=== PATIENT | female | born 1945 | race Caucasian/White ===

== ENCOUNTER 2017-01-17 14:41 | Emergency (ER) | payer MEDICARE ==
--- NOTE | 2017-01-17 15:09 | UC ---
Eye Complaint HPI - HPI Summary HPI Summary: patient has had some sinus pressure and right eye drainage that was yellow and crusty this morning.Post nasal drip and cough present - History of Current Complaint Stated Complaint: RT EYE COMPLAINT Time Seen by Provider: 01/17/17 14:59 Hx Obtained From: Patient Hx Last Menstrual Period: N/A ?: No Onset/Duration: Sudden Onset, Lasting Days Timing: Constant Severity Initially: Moderate Severity Currently: Moderate Character: Foreign Body Sensation Associated Signs And Symptoms: Positive: Drainage (Purulent) - Risk Factors Penetrating Injury Risk Factor: Negative Globe Rupture Risk Factors: Negative Acute Glaucoma Risk Factors: Negative - Allergies/Home Medications Allergies/Adverse Reactions: Allergies Allergy/AdvReac Type Severity Reaction Status Date / Time Clarithromycin [From Biaxin] AdvReac Unknown Unknown Verified 01/17/17 14:51 Reaction Details Home Medications: Home Medications Fluticasone-Salmeterol 100-50* [Advair Diskus 100-50*] 1 puff INH BID 01/17/17 [ History Confirmed 01/17/17] Latanoprost 0.005%* [Xalatan 0.005%*] 1 drop BOTH EYES QPM 01/17/17 [History Confirmed 01/17/17] Pioglitazone TAB* [Actos TAB*] 15 mg PO DAILY 01/17/17 [History Confirmed ] Ramipril CAP* [Altace CAP*] 1 tab PO BID 01/17/17 [History Confirmed 01/17/17] PMH/Surg Hx/FS Hx/Imm Hx Previously Healthy: Yes Endocrine History Of: Reports: Diabetes, Thyroid Disease Cardiovascular History Of: Reports: Cardiac Disorders - aortic insufficiency, aortic stenosis, Hypertension Respiratory History Of: Reports: Asthma Denies: COPD - Surgical History Surgical History: Yes Surgery Procedure, Year, and Place: CARPAL TUNNEL. CHOLECYSTECTOMY. APPY, open heart - aortic valve replacement 02/24/2014 cardiac [facility] - Family History Known Family History: Positive: Hypertension, Renal Disease - Social History Alcohol Use: None Substance Use Type: None Smoking Status (MU): Former Smoker When Did the Patient Quit Smoking/Using Tobacco: 30-40 years ago Review of Systems Constitutional: Negative Skin: Negative Eyes: Drainage, Eye Redness ENT: Sore Throat Respiratory: Negative Cardiovascular: Negative Gastrointestinal: Negative Genitourinary: Negative Motor: Negative Neurovascular: Negative Musculoskeletal: Negative Neurological: Headache Psychological: Negative All Other Systems Reviewed And Are Negative: Yes Physical Exam Triage Information Reviewed: Yes Appearance: No Pain Distress, Well-Nourished, Pain Distress Vital Signs: Initial Vital Signs Temp 97.8 F 01/17/17 15:02 Pulse 75 01/17/17 15:02 Resp 20 01/17/17 15:02 BP 125/56 01/17/17 15:02 Pulse Ox 95 01/17/17 15:02 Vital Signs Reviewed: Yes Eye Exam: Normal Eyes: Positive: Conjunctiva Inflamed, Discharge ENT: Positive: Pharyngeal erythema - with postieror pharynx exudate, Nasal congestion, Nasal drainage, TM bulging, Other: - bilateral maxillary sinus pressure, turbid in both nares red and inflammed, Dental Exam: Normal Neck exam: Normal Neck: Positive: Supple, Nontender, No Lymphadenopathy Respiratory Exam: Normal Respiratory: Positive: Chest non-tender, Lungs clear, Normal breath sounds Cardiovascular Exam: Normal Cardiovascular: Positive: RRR, No Murmur, Pulses Normal Abdominal Exam: Normal Abdomen Description: Positive: Nontender, No Organomegaly, Soft Bowel Sounds: Positive: Present Musculoskeletal Exam: Normal Musculoskeletal: Positive: Strength Intact, ROM Intact, No Edema Neurological Exam: Normal Neurological: Positive: Alert, Muscle Tone Normal Psychological Exam: Normal Skin Exam: Normal Eye Complaint Course/Dx - Course Course Of Treatment: hx obtained, exam performed, meds reviewed, treated for sinus congestion and conjunctivitis - Differential Dx/Diagnosis Differential Diagnosis/HQI/PQRI: Conjunctivitis, Periorbital Cellulitis Provider Diagnoses: rhinosinusitis. conjunctivitis Discharge - Discharge Plan Condition: Stable Disposition: HOME Patient Education Materials: Conjunctivitis (ED) Additional Instructions: take the medications as directed, Increase your fluid intake and get plenty of rest. follow up with any worsening symtpoms.
[2017-01-17 15:21] VITALS: BP 125/56
== END 2017-01-17 15:35 | disposition home or self-care (01) ==
LOC: UCCORT 14:41
DX: J32.9 Chronic sinusitis, unspecified (principal); H10.31 Unspecified acute conjunctivitis, right eye; I35.1 Nonrheumatic aortic (valve) insufficiency; I35.0 Nonrheumatic aortic (valve) stenosis; I10 Essential (primary) hypertension; Z95.2 Presence of prosthetic heart valve; Z88.1 Allergy status to other antibiotic agents; Z87.891 Personal history of nicotine dependence
CPT/HCPCS: 99212; G0463

== ENCOUNTER 2017-05-10 17:07 | Emergency (ER) | payer MEDICARE ==
[2017-05-10 17:31] VITALS: BP 129/46
--- NOTE | 2017-05-10 17:49 | UC ---
Back Pain HPI - HPI Summary HPI Summary: Had L low back pain starting 2 weeks ago, seemed to be clearing up until 3 days ago when pain suddenly worsened while she was twisting to wipe after a BM. Denies urinary pain, frequency, or blood. No changes in swelling/weight. No hx of back surgery. 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 - History of Current Complaint Chief Complaint: UCBackPain Stated Complaint: BACK PAIN Time Seen by Provider: 05/10/17 17:10 Hx Obtained From: Patient Hx Last Menstrual Period: N/A ?: No Onset/Duration: Gradual Onset, Lasting Weeks Timing: Constant Severity Initially: Mild Severity Currently: Moderate Character: Dull, Aching, Stiffness Aggravating: Movement - twisting to the right is worse, twisting to the L is ok Alleviating: Rest Associated Signs And Symptoms: Negative: Weakness, Numbness, Tingling, Bladder Incontinence - Allergies/Home Medications Allergies/Adverse Reactions: Allergies Allergy/AdvReac Type Severity Reaction Status Date / Time Clarithromycin [From Biaxin] AdvReac Unknown Unknown Verified 05/10/17 17:12 Reaction Details Home Medications: Home Medications Potassium Chlor TAB* [Klor Con ER TAB 10 MEQ*] 1 tab TID 05/10/17 [History Confirmed 05/10/17] PMH/Surg Hx/FS Hx/Imm Hx Endocrine History: Diabetes, Thyroid Disease Cardiovascular History: Hypertension Other Cardiovascular History: aortic insuff., valve surgery? Respiratory History: Asthma - Surgical History Surgical History: Yes Surgery Procedure, Year, and Place: CARPAL TUNNEL. CHOLECYSTECTOMY. APPY, open heart - aortic valve replacement 02/24/2014 cardiac [facility] - Family History Known Family History: Positive: None, Hypertension, Renal Disease - Social History Occupation: Retired Lives: Alone Alcohol Use: None Substance Use Type: None Smoking Status (MU): Former Smoker When Did the Patient Quit Smoking/Using Tobacco: 30-40 years ago - Immunization History Most Recent Influenza Vaccination: 2016 Most Recent Tetanus Shot: UTD Most Recent Pneumonia Vaccination: UTD Review of Systems Constitutional: Negative Skin: Negative Eyes: Negative ENT: Negative Respiratory: Negative Cardiovascular: Negative Gastrointestinal: Negative Genitourinary: Negative Motor: Negative Neurovascular: Negative Musculoskeletal: Arthralgia, Myalgia Neurological: Negative Psychological: Negative All Other Systems Reviewed And Are Negative: Yes Physical Exam Triage Information Reviewed: Yes Appearance: No Pain Distress, Obese Vital Signs: Initial Vital Signs Temp 97.6 F 05/10/17 17:19 Pulse 74 05/10/17 17:19 Resp 18 05/10/17 17:19 BP 129/46 05/10/17 17:19 Pulse Ox 94 05/10/17 17:19 Vital Signs Reviewed: Yes Eye Exam: Other - PERRL Eyes: Positive: Conjunctiva Clear ENT: Positive: Normal ENT inspection, Hearing grossly normal, Pharynx normal, TMs normal. Negative: Tonsillar swelling, Tonsillar exudate Dental Exam: Other - dentures Neck exam: Normal Respiratory Exam: Other - breathless with movement Respiratory: Positive: Lungs clear, No respiratory distress, No accessory muscle use Cardiovascular: Positive: RRR, Murmur:Sys:Grade _?_/ - II Abdomen Description: Negative: CVA Tenderness (R), CVA Tenderness (L) Musculoskeletal: Positive: Strength Intact, ROM Intact, Edema @ - BLE, pt states it is at its normal stage Neurological: Positive: Alert Psychological Exam: Normal Back Pain Course/Dx - Differential Dx/Diagnosis Provider Diagnoses: L low back strain Discharge - Discharge Plan Condition: Stable Disposition: HOME Prescriptions: Hydrocodone-Acetaminophen [Hydrocodone/Acetaminophen 5-325 mg] 1 tab PO QID #12 tab MDD 4 Tizanidine HCl [Zanaflex] 2 mg PO TID #20 cap Patient Education Materials: Low Back Strain (ED) Referrals: Mason Madrid MD [Primary Care Provider] - Additional Instructions: As we discussed, we have not done any bloodwork or advanced imaging to rule out serious causes of your back pain. At this time, however, there are no "red flag " symptoms. Please keep your appointment with your kidney doctor on Saturday. If you develop fever, severe pain, worsening swelling, or urinary or bowel changes over the weekend, please go right to the emergency department.
--- NOTE | 2017-05-10 18:26 | RAD ---
HISTORY: Low back pain COMPARISONS: None VIEWS: 5 , Frontal, lateral, coned-down lateral sacral, and bilateral oblique views of the lumbar spine. FINDINGS: ALIGNMENT: The alignment is normal. VERTEBRAL BODIES: There is diffuse osteopenia. There is multilevel anterolateral marginal osteophyte formation. The vertebral bodies are preserved in height. JOINTS: There is extensive facet osteoarthritic change throughout the lumbar spine INTERVERTEBRAL DISCS: There is diffuse loss of intervertebral disc height. SOFT TISSUE: There is atherosclerosis of the abdominal aorta OTHER: There is osteoarthritis of the hips and SI joints IMPRESSION: 1. EXTENSIVE FACET OSTEOARTHRITIS WITH DEGENERATIVE DISC DISEASE. 2. ATHEROSCLEROSIS
== END 2017-05-10 18:37 | disposition home or self-care (01) ==
LOC: UCCORT 17:07
DX: S39.012A Strain of muscle, fascia and tendon of lower back, initial encounter (principal); M47.816 Spondylosis without myelopathy or radiculopathy, lumbar region; I70.0 Atherosclerosis of aorta; X50.9XXA Other and unspecified overexertion or strenuous movements or postures, initial encounter; Y92.9 Unspecified place or not applicable; E11.9 Type 2 diabetes mellitus without complications; I10 Essential (primary) hypertension; J45.909 Unspecified asthma, uncomplicated; Z95.2 Presence of prosthetic heart valve; Z87.891 Personal history of nicotine dependence; Z88.1 Allergy status to other antibiotic agents
CPT/HCPCS: 72110; 99212; G0463

== ENCOUNTER 2017-09-09 12:41 | Emergency (ER) | payer MEDICARE ==
[2017-09-09 13:24] VITALS: BP 139/58
--- NOTE | 2017-09-11 21:52 | UC ---
Complaint Female HPI - HPI Summary HPI Summary: 72 year old female presents with complains of urinary frequency and urgency. - History Of Current Complaint Chief Complaint: UCGU Stated Complaint: PERSONAL Time Seen by Provider: 09/09/17 13:00 Hx Obtained From: Patient Hx Last Menstrual Period: N/A Onset/Duration: Sudden Onset Severity Initially: Moderate Severity Currently: Moderate Pain Intensity: 10 Pain Scale Used: 0-10 Numeric - Allergies/Home Medications Allergies/Adverse Reactions: Allergies Allergy/AdvReac Type Severity Reaction Status Date / Time Clarithromycin [From Biaxin] AdvReac Unknown Unknown Verified 09/09/17 13:08 Reaction Details Home Medications: Home Medications Metolazone TAB* [Zaroxolyn TAB*] 5 mg PO 09/09/17 [History] glipiZIDE TAB* [Glucotrol TAB*] 10 mg PO DAILY 09/09/17 [History Confirmed 09/09] PMH/Surg Hx/FS Hx/Imm Hx Previously Healthy: Yes - Surgical History Surgical History: Yes Surgery Procedure, Year, and Place: CARPAL TUNNEL. CHOLECYSTECTOMY. APPY, open heart - aortic valve replacement 02/24/2014 cardiac [facility] [place] - Family History Known Family History: Positive: None, Hypertension, Renal Disease - Social History Alcohol Use: None Substance Use Type: None Smoking Status (MU): Former Smoker When Did the Patient Quit Smoking/Using Tobacco: 30-40 years ago - Immunization History Most Recent Influenza Vaccination: 2015 Most Recent Tetanus Shot: UTD Most Recent Pneumonia Vaccination: UTD Review of Systems Constitutional: Negative Skin: Negative Eyes: Negative ENT: Negative Respiratory: Negative Cardiovascular: Negative Gastrointestinal: Negative Genitourinary: Frequency, Urgency Motor: Negative Neurovascular: Negative Musculoskeletal: Negative Neurological: Negative Psychological: Negative All Other Systems Reviewed And Are Negative: Yes Physical Exam Triage Information Reviewed: Yes Vital Signs: Initial Vital Signs Temp 36.3 C 09/09/17 13:16 Pulse 71 09/09/17 13:16 Resp 18 09/09/17 13:16 BP 139/58 09/09/17 13:16 Pulse Ox 96 09/09/17 13:16 Vital Signs Reviewed: Yes Eye Exam: Normal ENT Exam: Normal Dental Exam: Normal Neck exam: Normal Neck: Positive: 1 Respiratory Exam: Normal Cardiovascular Exam: Normal Abdominal Exam: Normal Musculoskeletal Exam: Normal Neurological Exam: Normal Psychological Exam: Normal Skin Exam: Normal Complaint Female Dx - Differential Dx/Diagnosis Provider Diagnoses: uti Discharge - Discharge Plan Condition: Stable Disposition: HOME Prescriptions: Nitrofurantoin Monohyd Macro [Macrobid] 100 mg PO BID #14 cap Phenazopyridine 200 mg (NF) [Pyridium 200 MG tab *] 200 mg PO TID PRN #9 tab PRN Reason: Pain Patient Education Materials: Urinary Tract Infection in Women (ED) Referrals: Mason Madrid MD [Primary Care Provider] -
== END 2017-09-09 13:54 | disposition home or self-care (01) ==
LOC: UCCORT 12:41
DX: N39.0 Urinary tract infection, site not specified (principal); Z88.1 Allergy status to other antibiotic agents; Z90.49 Acquired absence of other specified parts of digestive tract; Z95.2 Presence of prosthetic heart valve; Z87.891 Personal history of nicotine dependence
CPT/HCPCS: 81003; 87086; 99212; G0463

== ENCOUNTER 2017-09-22 16:55 | Emergency (ER) | payer MEDICARE ==
--- NOTE | 2017-09-22 17:31 | UC ---
Complaint Female HPI - HPI Summary HPI Summary: c/o increased urgency, frequency but no burning. has DM but hasnt checked her sugar lately but has had increase in thirst over past few weeks. sometimes she says she feels like her ? bladder is hanging low she feels some tissue when she wipes". - History Of Current Complaint Chief Complaint: UCGU Stated Complaint: RE-CHECK URINARY Hx Obtained From: Patient Hx Last Menstrual Period: N/A Onset/Duration: Lasting Days Timing: Constant Severity Initially: Moderate Severity Currently: Moderate Aggravating Factor(s): Coughing, Urination Associated Signs And Symptoms: Positive: Negative - Risk Factors Ectopic Risk Factor: Negative Ovarian Torsion Risk Factor: Negative - Allergies/Home Medications Allergies/Adverse Reactions: Allergies Allergy/AdvReac Type Severity Reaction Status Date / Time Clarithromycin [From Biaxin] AdvReac Unknown Unknown Verified 09/09/17 13:08 Reaction Details PMH/Surg Hx/FS Hx/Imm Hx Previously Healthy: Yes Endocrine History: Diabetes - Surgical History Surgical History: Yes Surgery Procedure, Year, and Place: CARPAL TUNNEL. CHOLECYSTECTOMY. APPY, open heart - aortic valve replacement 02/24/2014 cardiac [facility] - Family History Known Family History: Positive: None, Hypertension, Renal Disease - Social History Alcohol Use: None Substance Use Type: None Smoking Status (MU): Former Smoker When Did the Patient Quit Smoking/Using Tobacco: 30-40 years ago - Immunization History Most Recent Influenza Vaccination: 2015 Most Recent Tetanus Shot: UTD Most Recent Pneumonia Vaccination: UTD Review of Systems Constitutional: Negative Skin: Negative Eyes: Negative ENT: Negative Respiratory: Negative Cardiovascular: Negative Gastrointestinal: Negative Genitourinary: Frequency, Urgency Neurological: Negative Psychological: Negative Is Patient Immunocompromised?: No All Other Systems Reviewed And Are Negative: Yes Physical Exam Triage Information Reviewed: Yes Appearance: No Pain Distress Vital Signs: Initial Vital Signs Temp 98.1 F 09/22/17 17:05 Pulse 77 09/22/17 17:05 Resp 20 09/22/17 17:05 BP 162/58 09/22/17 17:05 Pulse Ox 95 09/22/17 17:05 Vital Signs Reviewed: Yes Respiratory Exam: Normal Cardiovascular Exam: Normal Abdominal Exam: Normal Psychological Exam: Normal Skin Exam: Normal Complaint Female Dx - Course Course Of Treatment: urine - negative for UTI but + ketones. 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 check BS daily to see what sugar is running - if high talk with pcp for better control. f/u pcp in 1 week if symtpoms not resolving - Differential Dx/Diagnosis Provider Diagnoses: DM uncontrolled. urinary frequency not UTI related Discharge - Discharge Plan Condition: Stable Disposition: HOME Patient Education Materials: Blood and Urine Ketones (ED) Referrals: Mason Madrid MD [Primary Care Provider] - 1 Week Nicci Castillo MD [Medical Doctor] -
[2017-09-22 17:36] VITALS: BP 162/58
== END 2017-09-22 17:50 | disposition home or self-care (01) ==
LOC: UCCORT 16:55
DX: R35.0 Frequency of micturition (principal); E11.9 Type 2 diabetes mellitus without complications; Z90.49 Acquired absence of other specified parts of digestive tract; Z95.2 Presence of prosthetic heart valve; Z88.1 Allergy status to other antibiotic agents; Z87.891 Personal history of nicotine dependence
CPT/HCPCS: 81003; 87086; 99212; G0463

== ENCOUNTER 2018-09-21 16:43 | Emergency (ER) | payer MEDICARE ==
[2018-09-21 17:06] VITALS: BP 153/48
[2018-09-21] MEDS ORDERED: Fluconazole 150 MG TAB PO ONE (17:13)
--- NOTE | 2018-09-21 17:18 | UC ---
Complaint Female HPI - HPI Summary HPI Summary: Patient is a diabetic, noticed she has had increased itching and irritation of the vaginal area. has had yeast infection in the past. treated with diflucan for 3 daoses by her RETAIL SUPPORT SPECIALIST. - History Of Current Complaint Chief Complaint: UCGU Stated Complaint: PERSONAL Time Seen by Provider: 09/21/18 17:03 Hx Obtained From: Patient Hx Last Menstrual Period: N/A ?: No Onset/Duration: Sudden Onset, Lasting Days Timing: Constant Severity Initially: Mild Severity Currently: Mild Pain Intensity: 3 Character: Burning Aggravating Factor(s): Urination Associated Signs And Symptoms: Positive: Vaginal Discharge - Allergies/Home Medications Allergies/Adverse Reactions: Allergies Allergy/AdvReac Type Severity Reaction Status Date / Time clarithromycin Allergy Unknown Unknown Verified 09/21/18 16:57 Reaction Details Home Medications: Home Medications Amiodarone TAB* [Cordarone TAB*] 200 mg PO DAILY 09/21/18 [History Confirmed 12/08] Ascorbic Acid TAB* [Vitamin C TAB*] 500 mg PO DAILY 09/21/18 [History Confirmed 09/21/18] Aspirin EC TAB* [Ecotrin EC Low Dose 81 MG*] 81 mg PO DAILY 09/21/18 [History Confirmed 09/21/18] Ergocalciferol (Vitamin D2) [Vitamin D2] 50,000 unit PO DAILY 09/21/18 [History Confirmed 09/21/18] Furosemide TAB* [Lasix TAB*] 40 mg PO DAILY 09/21/18 [History Confirmed 09/21/18 ] Insulin GLARGINE(*) [Lantus(*)] 40 units SUBCUT ONCE 09/21/18 [History Confirmed 09/21/18] Insulin Lispro [Humalog Kwikpen] 0 unit SUBCUT . DIRECTED 09/21/18 [History Confirmed 09/21/18] Levocetirizine Dihydrochloride [Xyzal] 5 mg PO DAILY 09/21/18 [History Confirmed 09/21/18] Potassium Chlor TAB* [Klor Con ER TAB*] 20 meq PO TID 09/21/18 [History Confirmed 09/21/18] Ramipril CAP* [Altace CAP*] 1.25 mg PO DAILY 09/21/18 [History Confirmed ] Simvastatin [Zocor 5 MG-] 10 mg PO BEDTIME 09/21/18 [History Confirmed 09/21/18] busPIRone TAB* [Buspar TAB *] 15 mg PO BID 09/21/18 [History Confirmed 09/21/18] traMADol TAB* [Ultram*] 50 mg PO Q6HR PRN 09/21/18 [History Confirmed 09/21/18] PMH/Surg Hx/FS Hx/Imm Hx Previously Healthy: Yes - Surgical History Surgical History: Yes Surgery Procedure, Year, and Place: CARPAL TUNNEL. CHOLECYSTECTOMY. APPY, open heart - aortic valve replacement 02/24/2014 cardiac [facility] - Family History Known Family History: Positive: None, Hypertension, Renal Disease - Social History Alcohol Use: None Substance Use Type: None Smoking Status (MU): Former Smoker When Did the Patient Quit Smoking/Using Tobacco: 30-40 years ago - Immunization History Most Recent Influenza Vaccination: 2015 Most Recent Tetanus Shot: UTD Most Recent Pneumonia Vaccination: UTD Review of Systems All Other Systems Reviewed And Are Negative: Yes Constitutional: Positive: Negative Skin: Positive: Rash Eyes: Positive: Negative Respiratory: Positive: Negative Cardiovascular: Positive: Negative Gastrointestinal: Positive: Negative Genitourinary: Positive: Negative Motor: Positive: Negative Neurovascular: Positive: Negative Musculoskeletal: Positive: Negative Neurological: Positive: Negative Psychological: Positive: Negative Is Patient Immunocompromised?: No Physical Exam Triage Information Reviewed: Yes Appearance: Well-Appearing, Pain Distress, Obese Vital Signs: Initial Vital Signs Temp 98.5 F 09/21/18 16:58 Pulse 75 09/21/18 16:58 Resp 22 09/21/18 16:58 BP 153/48 09/21/18 16:58 Pulse Ox 96 09/21/18 16:58 Vital Signs Reviewed: Yes Eye Exam: Normal ENT Exam: Normal Dental Exam: Normal Neck exam: Normal Respiratory Exam: Normal Respiratory: Positive: Chest non-tender, Lungs clear, Normal breath sounds Cardiovascular Exam: Normal Cardiovascular: Positive: RRR, No Murmur, Pulses Normal Abdominal Exam: Normal Pelvic Exam: Positive: Other - deferred exam of area Musculoskeletal Exam: Normal Musculoskeletal: Positive: Strength Intact, ROM Intact, No Edema Neurological Exam: Normal Psychological Exam: Normal Skin: Positive: Other - states she has redness of the private area Complaint Female Dx - Course Course Of Treatment: hx obtained, exam performed ,meds reviewed, treated for vagintitis - Differential Dx/Diagnosis Differential Diagnosis/HQI/PQRI: Urinary Tract Infection, Other - vaginitis Provider Diagnosis: Vaginitis and vulvovaginitis Discharge - Sign-Out/Discharge Documenting (check all that apply): Patient Departure All imaging exams completed and their final reports reviewed: Yes - Discharge Plan Condition: Stable Disposition: HOME Prescriptions: Fluconazole 150 MG (NF) [Diflucan 150 mg (NF)] 150 mg PO DAILY #2 tab Patient Education Materials: Vaginitis (ED) Referrals: Mason Madrid MD [Primary Care Provider] - Additional Instructions: 1. take the medication as prescribed 2. Keep area clean and dry 3. Follow up as needed. - Billing Disposition and Condition Condition: STABLE Disposition: Home
[2018-09-21] MEDS ORDERED: Fluconazole 100 MG TAB* TAB PO ONE (17:21)
== END 2018-09-21 17:37 | disposition home or self-care (01) ==
LOC: UCCORT 16:43
DX: N76.0 Acute vaginitis (principal); Z88.1 Allergy status to other antibiotic agents; Z87.891 Personal history of nicotine dependence; E11.9 Type 2 diabetes mellitus without complications; Z79.4 Long term (current) use of insulin
CPT/HCPCS: 99212; A9270-GY; G0463

== ENCOUNTER 2018-09-24 18:09 | Emergency (ER) | payer MEDICARE ==
[2018-09-24 20:22] VITALS: BP 148/74
--- NOTE | 2018-09-24 20:31 | UC ---
UC General HPI - HPI Summary HPI Summary: pt c/o pain to the back of her neck for 2 days. no hx of injury. worsens when pt turns her head to either side. no cp, sob, numb/tingling or weakness to extremities. was to stop using nsaids due to kidney function but did take one this am and one yesterday which helped. - History of Current Complaint Chief Complaint: UCGeneralIllness Stated Complaint: NECK PAIN Time Seen by Provider: 09/24/18 20:23 Hx Obtained From: Patient Hx Last Menstrual Period: N/A Pain Intensity: 8 - Allergy/Home Medications Allergies/Adverse Reactions: Allergies Allergy/AdvReac Type Severity Reaction Status Date / Time clarithromycin Allergy Unknown Unknown Verified 09/21/18 16:57 Reaction Details PMH/Surg Hx/FS Hx/Imm Hx - Additional Past Medical History Additional PMH: arrythmia Endocrine History: Diabetes, Thyroid Disease, Dyslipidemia Cardiovascular History: Hypertension Respiratory History: Asthma Psychological History: Depression - Surgical History Surgical History: Yes Surgery Procedure, Year, and Place: CARPAL TUNNEL. CHOLECYSTECTOMY. APPY, open heart - aortic valve replacement 02/24/2014 cardiac [facility] - Family History Known Family History: Positive: None, Hypertension, Renal Disease - Social History Alcohol Use: None Substance Use Type: None Smoking Status (MU): Former Smoker When Did the Patient Quit Smoking/Using Tobacco: 30-40 years ago - Immunization History Most Recent Influenza Vaccination: 2016 Most Recent Tetanus Shot: UTD Most Recent Pneumonia Vaccination: UTD Vaccination Up to Date: Yes Review of Systems All Other Systems Reviewed And Are Negative: Yes Constitutional: Positive: Negative Skin: Positive: Negative Eyes: Positive: Negative ENT: Positive: Negative Respiratory: Positive: Negative Cardiovascular: Positive: Negative Gastrointestinal: Positive: Negative Genitourinary: Positive: Negative Motor: Positive: Negative Neurovascular: Positive: Negative Musculoskeletal: Positive: Other: - neck pain Neurological: Positive: Negative Psychological: Positive: Negative Physical Exam Triage Information Reviewed: Yes Appearance: No Pain Distress Vital Signs: Initial Vital Signs Temp 97.5 F 09/24/18 20:17 Pulse 74 09/24/18 20:17 Resp 18 09/24/18 20:17 BP 148/74 09/24/18 20:17 Pulse Ox 95 09/24/18 20:17 Eyes: Positive: Conjunctiva Clear ENT: Positive: Pharynx normal, TMs normal. Negative: Nasal congestion, Nasal drainage Neck: Positive: Supple, No Lymphadenopathy, Other: - Tender over lateral trapezius mm with limited ROM due to spasm. C-spine is non tender. Respiratory: Positive: Lungs clear, Normal breath sounds Cardiovascular: Positive: RRR, No Murmur, Other: - Symmetrical radial pulses/ Abdomen Description: Positive: Nontender, No Organomegaly, Soft Bowel Sounds: Positive: Present Musculoskeletal: Positive: Other: - 5/5 strenght, 2+ REFLEXES AND SENSATION INTACT BUE'S Neurological: Positive: Alert, Other: - cCN 2-12 GROSSLY INTACT Psychological: Positive: Normal Response To Family, Age Appropriate Behavior Skin Exam: Normal Skin: Negative: Rashes Course/Dx - Course Course Of Treatment: NO CONCERN FOR FX, INFECTION, CARDIOPULMONARY PATHOLOGY OR DISSECTION. CASE D/W DR DAMON WHOM EXAMINED PT. WE AGREED ON [place]. PT HAS FAMILY TO DRIVE HER HOME. - Diagnoses Provider Diagnosis: Trapezius muscle spasm Discharge - Sign-Out/Discharge Documenting (check all that apply): Patient Departure All imaging exams completed and their final reports reviewed: No Studies - Discharge Plan Condition: Stable Disposition: HOME Prescriptions: Cyclobenzaprine TAB* [Flexeril 10 MG TAB*] 10 mg PO TID PRN #10 tab PRN Reason: Spasms - Neck Patient Education Materials: Muscle Spasm (ED) Referrals: Mason Madrid MD [Primary Care Provider] - As Soon As Possible - Billing Disposition and Condition Condition: STABLE Disposition: Home
[2018-09-24] MEDS ORDERED: HYDROcodone/ACETAMIN 5-325 MG* 1 TAB PO ONE (20:39)
[2018-09-24] MEDS ORDERED: LORazepam TAB(*) 1 MG PO ONE (20:39)
== END 2018-09-24 20:54 | disposition home or self-care (01) ==
LOC: UCCORT 18:09
DX: M62.838 Other muscle spasm (principal); Z88.1 Allergy status to other antibiotic agents; Z87.891 Personal history of nicotine dependence
CPT/HCPCS: 99212; A9270-GY; G0463

== ENCOUNTER 2018-12-06 15:17 | Emergency (ER) | payer MEDICARE ==
[2018-12-06 17:15] VITALS: BP 142/76
--- NOTE | 2018-12-06 17:33 | UC ---
Skin Complaint HPI - HPI Summary HPI Summary: C/O weeping drainage from left lower leg x 1 week. Getting worse. Using triple anbiotic ointment. - History of Current Complaint Chief Complaint: UCGeneralIllness Time Seen by Provider: 12/06/18 17:19 Stated Complaint: LEFT LEG COMPLAINT Hx Obtained From: Patient Hx Last Menstrual Period: N/A Onset/Duration: Gradual Onset, Lasting Weeks - 1, Worse Since - onset Timing: Constant Onset Severity: Mild Current Severity: Severe Pain Intensity: 0 Location: Discrete - left lateral lower leg. Character: Swelling, Redness Aggravating Factor(s): Touch Alleviating Factor(s): Nothing Associated Signs & Symptoms: Positive: Chills - ? due to cold room, Rash - around the foot, Drainage. Negative: Diaphoresis, Weakness, Difficulty Breathing, Cough, Wheezing, Chest Pain - Allergy/Home Medications Allergies/Adverse Reactions: Allergies Allergy/AdvReac Type Severity Reaction Status Date / Time clarithromycin Allergy Unknown Unknown Verified 12/06/18 15:35 Reaction Details Home Medications: Home Medications Acetaminophen [Extra Strength Non-Aspirin] 500 mg PO Q6H PRN 12/06/18 [History Confirmed 12/06/18] Cartilage/Collagen/Bor/Hyalur [Move Free Ultra Tablet] 1 each PO DAILY 12/06/18 [History Confirmed 12/06/18] Levothyroxine TAB* [Synthroid 75 MCG TAB*] 75 mcg PO DAILY 12/06/18 [History Confirmed 12/06/18] metOLazone [Metolazone] 2.5 mg PO DAILY 12/06/18 [History Confirmed 12/06/18] PMH/Surg Hx/FS Hx/Imm Hx Endocrine History: Diabetes, Hypothyroidism Cardiovascular History: Cardiac Disease, Hypertension - Surgical History Surgical History: Yes Surgery Procedure, Year, and Place: CARPAL TUNNEL. CHOLECYSTECTOMY. APPY, open heart - aortic valve replacement 02/24/2014 cardiac [facility] - Family History Known Family History: Positive: None, Hypertension, Diabetes, Renal Disease - Social History Occupation: Retired Lives: With Family Alcohol Use: None Substance Use Type: None Smoking Status (MU): Former Smoker When Did the Patient Quit Smoking/Using Tobacco: 30-40 years ago - Immunization History Most Recent Influenza Vaccination: 2016 Most Recent Tetanus Shot: UTD Most Recent Pneumonia Vaccination: UTD Vaccination Up to Date: Yes Review of Systems All Other Systems Reviewed And Are Negative: Yes Constitutional: Positive: Chills Skin: Positive: Rash - in the left ankle crease, Other - open area left lower leg with drainage. Respiratory: Positive: Shortness Of Breath - uses home oxygen. Is Patient Immunocompromised?: Yes - with diabetes. Physical Exam Triage Information Reviewed: Yes Appearance: Well-Appearing, Ill-Appearing, Obese Vital Signs: Initial Vital Signs Temp 97.5 F 12/06/18 17:04 Pulse 74 12/06/18 17:04 Resp 20 12/06/18 17:04 BP 142/76 12/06/18 17:04 Pulse Ox 98 12/06/18 17:04 Vital Signs Reviewed: Yes Eyes: Positive: Conjunctiva Clear Neck exam: Normal Respiratory: Positive: Lungs clear Cardiovascular: Positive: RRR, Murmur:Sys:Grade _?_/ - 3/6 Musculoskeletal: Positive: Edema @ - right LE 2-3 + edema, LLE 3+ pitting edema from leg down onto the foot. Neurological Exam: Normal Psychological Exam: Normal Skin: Positive: Other - Open skin with drainage medial/ lateral left lower leg. 12x20 cm Course/Dx - Course Course Of Treatment: Discussed with patient need to go to the ER if worse at all and need to f/u with Family Sat/. - Differential Diagnoses - Skin Complaint Differential Diagnoses: Abscess, Cellulitis, Lymphadenitis, Lymphangitis - Diagnoses Provider Diagnosis: Venous stasis dermatitis of left lower extremity, Cellulitis of left lower leg Discharge - Sign-Out/Discharge Documenting (check all that apply): Patient Departure All imaging exams completed and their final reports reviewed: No Studies - Discharge Plan Condition: Stable Disposition: HOME Prescriptions: Cephalexin CAP* [Keflex 500 CAP*] 500 mg PO QID #40 cap Patient Education Materials: Venous Insufficiency (DC), Cellulitis (ED), Cephalexin (By mouth) Referrals: Mason Madrid MD [Primary Care Provider] - 2 Days (Follow up swelling and infection) Additional Instructions: IF THERE IS REDNESS GOING UP THE LEG OR IF YOU GET FEVERS, GO TO THE ED. KEEP THE LEG ELEVATED MUCH POSSIBLE. REWRAP THE LEG WITH THE JULIA WRAP TWICE A DAY TO KEEP IT TIGHT. - Billing Disposition and Condition Condition: STABLE Disposition: Home
[2018-12-06] MEDS ORDERED: cefTRIAXone VIAL(*) 1,000 MG VIAL IM ONE (17:48)
[2018-12-06] MEDS ORDERED: Lidocaine 1% MPF* 2 ML VIAL ONE (18:00)
== END 2018-12-06 18:23 | disposition home or self-care (01) ==
LOC: UCCORT 15:17
DX: L03.116 Cellulitis of left lower limb (principal); I87.2 Venous insufficiency (chronic) (peripheral); E66.9 Obesity, unspecified; Z88.1 Allergy status to other antibiotic agents; Z87.891 Personal history of nicotine dependence
CPT/HCPCS: 93005; 96372; 99212; G0463; J0696

== ENCOUNTER 2018-12-17 13:17 | Emergency (ER) | payer MEDICARE ==
[2018-12-17 15:28] VITALS: BP 122/51
--- NOTE | 2018-12-17 16:23 | UC ---
Skin Complaint HPI - HPI Summary HPI Summary: Pt returns to clinic with c/o of tender, erythematous skin to left lower leg. Pt was seen here ~ 13 days ago, diagnosed with cellulitis, given IM rocephin and rX keflex QID, Pt now c/o of exocriated skin, peeling skin, "hives". Pt was seen by PCP who did not examine wound. Pt is an established pt with [facility] wound care. - History of Current Complaint Chief Complaint: UCSkin Time Seen by Provider: 12/17/18 15:07 Stated Complaint: SKIN CONCERN - LEFT LEG Hx Obtained From: Patient Hx Last Menstrual Period: N/A ?: No Onset/Duration: Gradual Onset, Still Present Skin Exposure Onset/Duration: Weeks Ago Timing: Constant Onset Severity: Moderate Current Severity: Moderate Pain Intensity: 2 Location: Discrete, Foot (Left) Character: Pruritus, Pain, Redness, Painful Aggravating Factor(s): Touch Alleviating Factor(s): Other - RX antibiotics Associated Signs & Symptoms: Positive: Tenderness - Allergy/Home Medications Allergies/Adverse Reactions: Allergies Allergy/AdvReac Type Severity Reaction Status Date / Time clarithromycin Allergy Unknown Unknown Verified 12/17/18 15:09 Reaction Details Home Medications: Home Medications Acetaminophen/Diphenhydramine [Sm Pain Reliever Pm Caplet] 1 tab PO Q6H PRN [History Confirmed 12/17/18] PMH/Surg Hx/FS Hx/Imm Hx Previously Healthy: No Endocrine History: Diabetes Cardiovascular History: Cardiac Disease - Surgical History Surgical History: Yes Surgery Procedure, Year, and Place: CARPAL TUNNEL. CHOLECYSTECTOMY. APPY, open heart - aortic valve replacement 02/24/2014 cardiac [facility] - Family History Known Family History: Positive: None, Hypertension, Diabetes, Renal Disease - Social History Occupation: Retired Lives: With Family Alcohol Use: None Substance Use Type: None Smoking Status (MU): Former Smoker Have You Smoked in the Last Year: No When Did the Patient Quit Smoking/Using Tobacco: 30-40 years ago - Immunization History Most Recent Influenza Vaccination: 2016 Most Recent Tetanus Shot: UTD Most Recent Pneumonia Vaccination: UTD Vaccination Up to Date: Yes Review of Systems All Other Systems Reviewed And Are Negative: Yes Constitutional: Positive: Negative Skin: Positive: Other - excoriated skins, thickened dry skin, toe nails thick yellow, dry skin thickened with dry skin Eyes: Positive: Negative ENT: Positive: Negative Respiratory: Positive: Negative Cardiovascular: Positive: Negative Gastrointestinal: Positive: Negative Genitourinary: Positive: Negative Motor: Positive: Decreased ROM - generalized reduced ROM Neurovascular: Positive: Negative Musculoskeletal: Positive: Decreased ROM, Edema - bilateral pitting edema at baseline Neurological: Positive: Weakness - generalized at baseline Psychological: Positive: Negative Is Patient Immunocompromised?: No Physical Exam Triage Information Reviewed: Yes Appearance: Pain Distress, Obese Vital Signs: Initial Vital Signs Temp 98.3 F 12/17/18 15:16 Pulse 80 12/17/18 15:16 Resp 20 12/17/18 15:16 BP 122/51 12/17/18 15:16 Pulse Ox 100 12/17/18 15:16 Vital Signs Reviewed: Yes Eye Exam: Normal ENT Exam: Normal Dental Exam: Normal Respiratory: Positive: No respiratory distress Musculoskeletal: Positive: Strength Limited @, ROM Limited @, Edema @ - bilateral LE pitting edema <1+ Neurological Exam: Normal - at baseline Psychological Exam: Normal Skin Exam: Other - large area of LE excoriated skin, bright red, shiny skin left lower extremity, 7 cm that encircles LLE, thick yellow brittle cordell, dry skin, clusters of dermaphytes, have concern for significant yeat infection or cellulitis, and perfusion dysfunction of LLE Skin: Positive: Other - general diffuse urticara, Course/Dx - Course Course Of Treatment: I discussed my concern for wound and requested that pt follow up with PCP an dwound care as soon as possible. Pt was also directed to ER if symptoms worsen - Differential Diagnoses - Skin Complaint Differential Diagnoses: Cellulitis, Tinea, Urticaria - Diagnoses Provider Diagnosis: Cellulitis and abscess of left leg, Tinea, Urticaria Discharge - Sign-Out/Discharge Documenting (check all that apply): Patient Departure All imaging exams completed and their final reports reviewed: No Studies - Discharge Plan Condition: Stable Disposition: HOME Prescriptions: Cetirizine* [ZyrTEC 10 MG TAB*] 10 mg PO DAILY #14 tab Mupirocin 2% OINT* [Bactroban 2 % Oint*] 1 applic TOPICAL Q12H #1 tube Sulfamethox/Trimethoprim DS* [Bactrim DS 800/160 TAB*] 1 tab PO Q12H #20 tab Patient Education Materials: Urticaria (ED), Cellulitis (ED), Skin Yeast Infection (ED) Referrals: Mason Madrid MD [Primary Care Provider] - As Soon As Possible Additional Instructions: PLEASE FOLLOW UP IMMEDIATELY AT [facility] [address], [place] [address] - Billing Disposition and Condition Condition: STABLE Disposition: Home
== END 2018-12-17 17:15 | disposition home or self-care (01) ==
LOC: UCCORT 13:17
DX: L03.116 Cellulitis of left lower limb (principal); L02.416 Cutaneous abscess of left lower limb; B35.9 Dermatophytosis, unspecified; L50.9 Urticaria, unspecified; E11.9 Type 2 diabetes mellitus without complications; Z87.891 Personal history of nicotine dependence; Z88.1 Allergy status to other antibiotic agents
CPT/HCPCS: 87070; 87077; 87186; 87205; 87640; 87641; 99213; G0463